=== PATIENT | male | born 1995 | race Caucasian/White ===

== ENCOUNTER 2021-05-30 22:12 | Emergency (ER) | payer BC, SELFPAY ==
[2021-05-30 22:30] VITALS: BP 185/85; PULSE 100; RESP 16; TEMP 37.7; O2SAT 100
[2021-05-30 23:37] LABS: Rapid Strep A Test Negative (Negative)
[2021-05-30 23:49] LABS: Influenza A by IFA Negative (Negative); Influenza B by IFA Negative (Negative); SARS Covid-2 Antigen Negative (Negative)
--- NOTE | 2021-05-31 00:23 | W.ED.COVID ---
HPI - COVID General: Chief Complaint: COVID symptoms Stated Complaint: Chills\shaking\sore Throat Time Seen by Provider: 05/30/21 23:57 Triage information: Has fever, cough or shortness of breath. No known COVID + exposure last 14 days History of Present Illness: HPI Narrative: Patient complains about sore throat today. Has had some chills mild fever here triage. Denies any other problems. MD complaint: other Prior covid testing: no COVID 19 common symptoms: positive fever(s), chills and throat pain; negative non-productive cough, productive cough, dyspnea, headache(s), nausea or vomiting COVID 19 other sytmptoms: negative chest pain Onset (ago): hour(s) Severity: mild Treatment prior to arrival: none COVID Results: SARS-CoV-2 Antigen (Rapid) Negative (Negative) 05/30/21 23:00 05/30/21 Review of Systems Const: Reports: fever(s) and chills Eyes: Denies: change in vision or blurry vision ENMT: Reports: throat pain Card: Denies: chest pain or dyspnea on exertion Resp: Denies: dyspnea, productive cough or non-productive cough GI: Denies: abdominal pain, nausea or vomiting : Denies: difficulty urinating Musc: Denies: extremity pain Skin/Breast: Denies: rash Neuro: Denies: headache(s) Psych: Denies: anxiety or depression Grant/Lymph: Denies: easy bruising Physical Exam Const: COMMON NORMALS: no acute distress, average body habitus and patient oriented x3 HENMT: COMMON NORMALS: normocephalic and Normal external nose present HEAD & SCALP: normal to inspection and normocephalic FACE & SINUS: normal facial exam NOSE: Normal external nose present MOUTH: Normal oral and palatal mucosa present THROAT: posterior oropharynx abnormal erythema Eye: COMMON NORMALS: conjunctivae normal GENERAL EYE: appearance normal, both eyes and all related structures CONJUNCTIVA: Yes conjunctivae normal Neck/C-Spine: COMMON NORMALS: no JVD Chest: COMMONS NORMALS: normal inspection of the chest Resp: COMMON NORMALS: normal respiratory effort and clear to auscultation bilaterally AUSCULTATION: clear to auscultation bilaterally Cardio: COMMON NORMALS: no JVD, regular rate and regular rhythm RATE: regular rate RHYTHM: regular rhythm GI: COMMON NORMALS: Normal to inspection, nondistended, normoactive bowel sounds present Extremity: COMMON NORMALS: normal to inspection and full ROM Neuro: COMMON NORMALS: patient oriented x3 Course Vital Signs: Vital signs: Vital Signs Temperature 100 F H 05/30/21 22:30 Pulse Rate 100 05/30/21 22:30 Respiratory Rate 16 05/30/21 22:30 Blood Pressure 185/85 05/30/21 22:30 Pulse Oximetry 100 05/30/21 22:30 MDM - COVID Lab Data: Labs: Lab Results 05/30/21 05/30/21 05/30/21 23:00 23:00 23:00 Influenza Type A A g Negative (Negative) Influenza Type B A g Negative (Negative) SARS-CoV-2 Ag (Rap id) Negative (Negative) Group A Strep Rapi d Negative (Negative) COVID Results: SARS-CoV-2 Antigen (Rapid) Negative (Negative) 05/30/21 23:00 05/30/21 Discharge Plan Discharge Patient Disposition: Home Clinical Impression: Pharyngitis Qualifiers: Pharyngitis/tonsillitis etiology: unspecified etiology Qualified Code(s): J02.9 - Acute pharyngitis, unspecified Condition: Stable Prescriptions: New cephalexin 500 mg capsule 500 mg PO Q8H 7 Days Qty: 21 RF: 0 Discharge Orders: Discharge ED (Routine); Ordered 05/31/21 Ordered By: Akira Mcgowan Discharge Diet: Usual diet Discharge Activity: Increase activity as tolerated Patient Instructions: Pharyngitis (ED) Activity Restrictions/Additional Instructions: Follow-up with medical provider as directed. Take medications as prescribed. Return to the ER or your medical provider if condition worsens. Please read and understand discharge instructions. If any questions ask please. 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
[2021-05-31 00:33] VITALS: O2SAT 100
[2021-05-31 00:34] VITALS: BP 140/80; PULSE 83; RESP 18; O2SAT 100
[2021-05-31] MEDS: cephALEXin 500 mg Capsule PO (01:02)
[2021-05-31] MEDS: acetaminophen 500 mg Tablet 1000 MG PO (01:02)
[2021-05-31 01:04] VITALS: BP 135/63; PULSE 99; RESP 18; O2SAT 95
== END 2021-05-31 01:06 | disposition home or self-care (01) ==
PROVIDERS: Emergency Medicine; Emergency Provider Nurse Practitioner Family
DX: J02.9 Acute pharyngitis, unspecified (principal)
CPT/HCPCS: 87081; 87426; 87804; 87880; 99283

== ENCOUNTER 2023-01-20 20:29 | Emergency (ER) | payer BC, SELFPAY ==
[2023-01-20 20:44] VITALS: BP 139/85; PULSE 96; RESP 18; TEMP 37.8; O2SAT 100; BMI 39.4
[2023-01-20 21:35] VITALS: BP 166/100; RESP 16; TEMP 38.4; O2SAT 100
--- NOTE | 2023-01-20 22:12 | ED_ITS ---
HPI - Headache General: Chief Complaint: Headache Stated Complaint: sore throat Time Seen by Provider: 01/20/23 21:33 History of Present Illness: 28yo male here with a sore throat and headache. Patient reports his throat started hurting him 2 days ago. States that it feels like he may have a crick in his neck due to the pain in his throat. Reports that he is now having a headache to the front of his head. Patient states that he did not have a fever at home, but he does have 1 here now. He reports that he does have increased pain with swallowing. He reports a family member had strep, but he has not been around them in about a week. He denies any cough, congestion, difficulty breathing, shortness of breath, chest pain, abdominal pain, vomiting, diarrhea. Associated symptoms: Reports fever(s); Deny chest pain, nausea or vomiting Review of Systems Const: Reports: fever(s); Denies: chills or body aches ENMT: Reports: throat pain Card: Denies: chest pain Resp: Denies: dyspnea GI: Denies: abdominal pain, nausea or vomiting Musc: Denies: neck pain Neuro: Reports: headache(s) Physical Exam Const: COMMON NORMALS: no acute distress, patient oriented x3, healthy appearing and alert GENERAL APPEARANCE: cooperative ORIENTATION/CONSCIOUSN ESS: Yes awake OTHER: Patient is ambulatory to the exam room unassisted. He is sitting upright on the stretcher in no acute distress. He is able to give history with no difficulty. No family is at bedside HENMT: COMMON NORMALS: normocephalic, atraumatic, external ears normal, EAC's normal, TM's normal bilaterally and Normal external nose present HEAD & SCALP: normocephalic and atraumatic FACE & SINUS: normal facial exam NOSE: Normal external nose present EXTERNAL EAR: Yes external ears normal EXTERNAL AUDITORY CANAL: EAC's normal TYMPANIC MEMBRANE: TM's normal bilaterally MOUTH: Normal oral and palatal mucosa present THROAT: posterior oropharynx abnormal cobblestoning and erythema; no exudates and tonsils absent Eye: GENERAL EYE: appearance normal, both eyes and all related structures Neck/C-Spine: COMMON NORMALS: full ROM Chest: CHEST: Yes Symmetrical chest wall rise Resp: COMMON NORMALS: normal respiratory effort EFFORT & INSPECTION: Yes able to speak in complete sentences Cardio: COMMON NORMALS: regular rate and regular rhythm RATE: regular rate RHYTHM: regular rhythm Extremity: COMMON NORMALS: full ROM Neuro: COMMON NORMALS: patient oriented x3 and moves all extremities SENSORIUM/ORIENTATION: Yes alert Psych: COMMON NORMALS: mental status grossly normal and cooperative Course Vital Signs: Vital signs: Vital Signs Temperature 100.6 F H 01/20/23 22:56 Pulse Rate 68 01/20/23 23:30 Respiratory Rate 18 01/20/23 23:30 Blood Pressure 132/67 01/20/23 23:30 Pulse Oximetry 100 01/20/23 23:30 Oxygen Delivery Me thod Room Air 01/20/23 22:24 MDM - Headache Medical Decision Making 28yo male here with a sore throat that has been ongoing for the past 2 days and headache that started today. Patient also developed a fever today. States that he was around someone with strep throat, but it has been greater than a week. He denies any cough, congestion, difficulty breathing, shortness of breath, chest pain, abdominal pain, vomiting, diarrhea. Patient is nontoxic in appearance. Vital signs are stable. Patient was noted to have a temperature of 101.1 in triage, Tylenol ordered. Differentials include strep pharyngitis, viral infection, tonsillitis Rapid strep is negative, culture is pending. Discussed findings with patient. Advised this is likely a viral infection and is typically self-limiting. Encourage patient to continue with Tylenol and/ibuprofen as needed for fever and comfort. Discussed increase fluid intake as well as salt water gargles. Recommend follow-up with primary care, call later this week with an update of symptoms and to discuss recheck. Advised return to the emergency department if any rapid worsening symptoms and as needed Lab Data I reviewed the patient's lab results. Laboratory Results Group A Strep Rapid Negative (Negative) 01/20/23 22:23 Discharge Plan Discharge Patient Disposition: Home Clinical Impression: Nonspecific syndrome suggestive of viral illness Condition: Stable Prescriptions: No Action fluticasone propionate [Flonase Allergy Relief] 50 mcg/actuation spray,suspension 2 spray intranasal DAILY Qty: 16 0RF Rx Instructions: administer into each nostril cetirizine [Zyrtec] 10 mg tablet 10 mg PO DAILY Qty: 30 0RF Discharge Orders: Discharge ED (Routine); Ordered 01/20/23 Ordered By: Jose Alberto Edi Discharge Diet: Usual diet Discharge Activity: Resume usual activity Patient Instructions: Viral Syndrome (ED) Activity Restrictions/Additional Instructions: Rapid strep is negative, the culture is pending. If positive, we will notify you Increase your fluid intake and continue to monitor your symptoms. 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
[2023-01-20] MEDS: acetaminophen 500 mg Tablet 1000 MG PO (22:21)
[2023-01-20 22:24] VITALS: BP 147/80; PULSE 116; O2SAT 100
[2023-01-20 22:42] LABS: Rapid Strep A Test Negative (Negative)
[2023-01-20 22:56] VITALS: TEMP 38.1
[2023-01-20 23:30] VITALS: BP 132/67; PULSE 68; RESP 18; O2SAT 100
--- NOTE | 2023-01-23 11:32 | DCPLANNER ---
system development manager called patient due to no primary care physician - patient declines at this time, he is going to try and get in with the provider that his father sees.
== END 2023-01-20 23:31 | disposition home or self-care (01) ==
PROVIDERS: Nurse Practitioner; Emergency Provider Family Medicine
DX: J02.9 Acute pharyngitis, unspecified (principal); R51.9 Headache, unspecified; R50.9 Fever, unspecified
CPT/HCPCS: 12345; 87081; 87880; 99283

== ENCOUNTER → 2023-02-02 10:15 | Outpatient (BNVA) | payer BC, SELFPAY | PROVIDERS: Visit Provider Family Medicine | DX: R50.9 Fever, unspecified (principal); J02.9 Acute pharyngitis, unspecified | CPT/HCPCS: 87071; 87426; 87880 ==

== ENCOUNTER 2023-04-18 05:44 | Emergency (ER) | payer BC, SELFPAY ==
[2023-04-18 05:48] VITALS: BP 123/70; PULSE 77; RESP 18; TEMP 36.8; O2SAT 100; BMI 39.1
[2023-04-18 06:10] LABS: Basophils % 0.2 %; Eosinophils # 0.1 10^3/uL (0.0-0.8); Eosinophils % 1.1 %; Hematocrit 43.6 % (37-53); Lymphocytes # 0.8 10^3/uL (0.8-4.8); Lymphocytes % 7.7 %; Mean Corpuscular HGB Conc 32.3 g/dL (30-55); Mean Corpuscular Hemoglobin 31.5 pg (27-33); Mean Corpuscular Volume 97.3 fl (82-101); Monocytes # 0.4 10^3/uL (0.2-0.9); Monocytes % 3.9 %; Neutrophils # 8.83 10^3/uL (1.8-7.7); Neutrophils % 86.8 %; Nucleated Red Blood Cells % 0 %; Platelet Count 157 10^3/cmm (157-399); Red Blood Count 4.48 10^6/uL (3.85-5.65); Red Cell Distribution Width 13.3 % (12.1-15.1); White Blood Count 10.17 10^3/uL (3.29-11.43)
[2023-04-18] MEDS: sodium chloride 0.9% 1,000 ML 999 ML IV (06:13)
--- NOTE | 2023-04-18 06:21 | W.ED.NAVMDI ---
HPI - Nausea/Vomiting/Diarrhea General: Chief complaint: Nausea/Vomiting/Diarrhea Stated complaint: Stomach Pain Time Seen by Provider: 04/18/23 05:58 Source: patient Mode of arrival: ambulatory History of Present Illness: 28-year-old male presents emergency room complaining of nausea vomiting and diarrhea. Began overnight yesterday he ate a couple of times in the evening began to feel sick he had a low-grade fever no dysuria urgency or frequency denies hematemesis coffee-ground emesis. No abdominal pain at this time no chest pain no shortness of breath no other symptoms. Said 1 episode of vomiting and 3 diarrhea stools MD elicited complaint: nausea, vomiting and diarrhea Onset (ago): hour(s) Description of vomiting: food contents and watery Associated nausea: Yes Associated abdominal pain: No Exacerbating factors: none Relieving factors: none Associated symtoms: Reports nausea; Denies altered mental status, anxiety, bloating, change in vision, chest pain, cough, diaphoresis, decreased urine output, dizziness, dysuria, epistaxis, fatigue, fecal incontinence, fevers/chills, headache(s), anorexia, malaise, myalgias, numbness, palpitations, rash, short of breath, syncope, tenesmus, tinnitus or weakness Review of Systems Const: Denies: fever(s), chills, fatigue, malaise or diaphoresis Eyes: Denies: change in vision ENMT: Denies: tinnitus or epistaxis Card: Denies: chest pain, palpitations or syncope Resp: Denies: dyspnea GI: Reports: nausea, vomiting and diarrhea; Denies: abdominal pain, bloating or fecal incontinence : Denies: dysuria Musc: Denies: neck pain or back pain Skin/Breast: Denies: rash Neuro: Denies: headache(s) or dizziness Psych: Denies: anxiety Physical Exam Const: COMMON NORMALS: no acute distress EXAM LIMITATIONS: no altered mental status GENERAL APPEARANCE: cooperative and comfortable ORIENTATION/CONSCIOUSNESS: Yes awake, Yes oriented to person, Yes oriented to place and Yes oriented to time HENMT: COMMON NORMALS: normocephalic, atraumatic and hearing grossly normal bilaterally HEAD & SCALP: normocephalic and atraumatic Resp: COMMON NORMALS: normal respiratory effort, No retractions, No use of accessory muscles and clear to auscultation bilaterally AUSCULTATION: clear to auscultation bilaterally Cardio: COMMON NORMALS: regular rate, regular rhythm and No murmurs present (Cardio) RATE: regular rate RHYTHM: regular rhythm GI: COMMON NORMALS: Soft to palpation and No hepatosplenomegaly present AUSCULTATION: Yes normoactive bowel sounds PALPATION: Yes Soft to palpation, No Tenderness to palpation present (GI), No Guarding due to palpation present (GI) and Yes No hepatosplenomegaly present Extremity: COMMON NORMALS: normal to inspection, capillary refill normal, no clubbing, cyanosis or edema, no calf tenderness and no pedal edema Neuro: SENSORIUM/ORIENTATION: Yes oriented to person, Yes oriented to place and Yes oriented to time Skin: COMMON NORMALS: no rashes or lesions noted GENERAL SKIN EXAM: no rashes or lesions noted Course Vital Signs: Vital signs: Vital Signs Temperature 98.3 F 04/18/23 05:48 Pulse Rate 77 04/18/23 05:48 Respiratory Rate 18 04/18/23 07:21 Blood Pressure 123/70 04/18/23 05:48 Pulse Oximetry 96 04/18/23 07:21 Oxygen Delivery Me thod Room Air 04/18/23 07:21 MDM - Nausea/Vomiting/Diarrhea Medical Decision Making Labs abdominal reviewed, exam benign with. no leukocytosis. Discharge home clear liquid diet and advance as tolerated antiemetics as needed. Medical Records I reviewed the patient's medical records. Lab Data I reviewed the patient's lab results. 04/18/23 06:05 04/18/23 07:00 Laboratory Results WBC 10.17 10^3/uL (3.29-11.43) 04/18/23 06:05 RBC 4.48 10^6/uL (3.85-5.65) 04/18/23 06:05 Hgb 14.10 g/dL (11.27-16.99) 04/18/23 06:05 Hct 43.6 % (37-53) 04/18/23 06:05 MCV 97.3 fl (82-101) 04/18/23 06:05 MCH 31.5 pg (27-33) 04/18/23 06:05 MCHC 32.3 g/dL (30-55) 04/18/23 06:05 RDW 13.3 % (12.1-15.1) 04/18/23 06:05 Plt Count 157 10^3/cmm (157-399) 04/18/23 06:05 MPV 11.0 fL (7.4-10.4) H 04/18/23 06:05 Neut % (Auto) 86.8 % 04/18/23 06:05 Lymph % (Auto) 7.7 % 04/18/23 06:05 Butts % (Auto) 3.9 % 04/18/23 06:05 Eos % (Auto) 1.1 % 04/18/23 06:05 Baso % (Auto) 0.2 % 04/18/23 06:05 Neut # (Auto) 8.83 10^3/uL (1.8-7.7) H 04/18/23 06:05 Lymph # (Auto) 0.8 10^3/uL (0.8-4.8) 04/18/23 06:05 Butts # (Auto) 0.4 10^3/uL (0.2-0.9) 04/18/23 06:05 Eos # (Auto) 0.1 10^3/uL (0.0-0.8) 04/18/23 06:05 Baso # (Auto) 0.0 10^3/uL (0.0-0.1) 04/18/23 06:05 Nucleated RBC % (auto) 0 % 04/18/23 06:05 Nucleated RBCs # 0.0 /100WBC 04/18/23 06:05 Sodium 136 mmol/L (136-145) 04/18/23 07:00 Potassium 3.7 mmol/L (3.5-5.1) 04/18/23 07:00 Chloride 98 mmol/L (98-107) 04/18/23 07:00 Carbon Dioxide 27 mmol/L (22-29) 04/18/23 07:00 Anion Gap 14.7 (5-19) 04/18/23 07:00 BUN 12 mg/dL (6-20) 04/18/23 07:00 Creatinine 0.9 mg/dL (0.7-1.2) 04/18/23 07:00 GFR Calculation 102.0 mL/min (90-130) 04/18/23 07:00 Glucose 109 mg/dL (65-115) 04/18/23 07:00 Calculated Osmolality 282 mOsm/kg (285-295) L 04/18/23 07:00 Calcium 8.2 mg/dL (8.5-10.5) L 04/18/23 07:00 Total Bilirubin 0.9 mg/dL (0.15-1.2) 04/18/23 07:00 AST 20 U/L (0-40) 04/18/23 07:00 ALT 27 U/L (0-41) 04/18/23 07:00 Alkaline Phosphatase 81 U/L (40-130) 04/18/23 07:00 C-Reactive Protein 24.4 mg/L (0.0-4.9) H 04/18/23 07:00 Total Protein 7.1 g/dL (6.6-8.7) 04/18/23 07:00 Albumin 4.0 g/dL (3.5-5.2) 04/18/23 07:00 Globulin 3.1 g/dL (1.3-4.6) 04/18/23 07:00 Lipase 17 U/L (13-60) 04/18/23 07:00 Urine Color Yellow (Yellow) 04/18/23 07:20 Urine Appearance Sl hazy (CLEAR) A 04/18/23 07:20 Urine pH 9 (5-7) H 04/18/23 07:20 Ur Specific [place] 1.015 (1.005-1.030) 04/18/23 07:20 Urine Protein Neg (Negative) 04/18/23 07:20 Urine Glucose (UA) Norm (Normal) 04/18/23 07:20 Urine Ketones Negative (Negative) 04/18/23 07:20 Urine Blood Neg (Negative) 04/18/23 07:20 Urine Nitrate Negative (Negative) 04/18/23 07:20 Urine Bilirubin Neg (Negative) 04/18/23 07:20 Prot Sulfosalicylic Acd Negative (Negative) 04/18/23 07:20 Urine Urobilinogen Norm mg/dL (Negative) 04/18/23 07:20 Ur Leukocyte Esterase Negative (Negative) 04/18/23 07:20 Urine RBC None /hpf (0-2) 04/18/23 07:20 Urine WBC None /hpf (0-5) 04/18/23 07:20 Ur Squamous Epith Cells 0-4 /hpf (0-5) H 04/18/23 07:20 Amorphous Sediment Trace /hpf 04/18/23 07:20 Urine Bacteria Trace /hpf (NONE) 04/18/23 07:20 Urine Mucus 1+ /hpf 04/18/23 07:20 No radiology studies performed this visit Discharge Plan Discharge Patient Disposition: Home Clinical Impression: Gastroenteritis Condition: Stable Prescriptions: New ondansetron HCl 4 mg tablet 4 mg PO Q6H PRN (Reason: nausea and vomiting) Qty: 20 0RF No Action azithromycin [Zithromax Z-Kirt] 250 mg tablet See Rx Instructions PO .COMPLEX Qty: 6 0RF Rx Instructions: take 500 mg today (day 1), then 250 mg for 4 days (days 2-5) PO Discharge Orders: Discharge ED (Routine); Ordered 04/18/23 Ordered By: Rajat Chiang Referrals: Deb Dominguez MD [Primary Care Provider] - Discharge Diet: Clear Liquid Discharge Activity: Increase activity as tolerated Patient Instructions: Opioid Safety, Pain Management Activity Restrictions/Additional Instructions: Thank you for choosing [facility] for your healthcare needs today. Please realize this is an emergency room and that we are providing you with a medical screening exam and this may not be complete and all inclusive of all the testing and or work up that you may need to determine your ailment or severity of your illness. It is very important that you follow up as instructed or that you return to the Emergency Department should you have concerns or if your condition changes or worsens in any way. Your laboratory tests were unremarkable. Recommend clear liquid diet for 24 to 48 hours using ondansetron as needed for nausea. 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
[2023-04-18 07:21] VITALS: RESP 18; O2SAT 96
[2023-04-18 07:37] LABS: Alanine Aminotransferase 27 U/L (0-41); Alkaline Phosphatase 81 U/L (40-130); Anion Gap 14.7 (5-19); Aspartate Amino Transferase 20 U/L (0-40); Blood Urea Nitrogen 12 mg/dL (6-20); C Reactive Protein 24.4 mg/L (0.0-4.9); Calcium 8.2 mg/dL (8.5-10.5); Carbon Dioxide 27 mmol/L (22-29); Chloride 98 mmol/L (98-107); Globulin 3.1 g/dL (1.3-4.6); Glucose 109 mg/dL (65-115); Lipase 17 U/L (13-60); Osmolality Calculated 282 mOsm/kg (285-295); Potassium 3.7 mmol/L (3.5-5.1); Sodium 136 mmol/L (136-145); Total Bilirubin 0.9 mg/dL (0.15-1.2); Total Protein 7.1 g/dL (6.6-8.7)
[2023-04-18 07:57] LABS: Add Urine Microscopic? YES; Amorphous Sediment Urine TRACE /hpf; Bacteria Urine TRACE /hpf; Bilirubin Urine Neg (Negative); Blood Urine Neg (Negative); Glucose Urine UA Norm (Normal); Ketones Urine Negative (Negative); Leukocyte Esterase Urine Negative (Negative); Mucus Urine 1+ /hpf; Nitrate Urine Negative (Negative); Protein Urine Neg (Negative); Specific Gravity, Urine 1.015 (1.005-1.030); Squamous Epithelial Cell Urine 0-4 /hpf (0-5); Sulfosalicylic Acid Urine Negative (Negative); Urine Appearance SL Hazy (CLEAR); Urine Color Yellow (Yellow); Urobilinogen Urine Norm (Negative); pH Urine 9 (5-7)
[2023-04-18 07:58] LABS: Add Urine Culture? No
== END 2023-04-18 08:43 | disposition home or self-care (01) ==
PROVIDERS: Emergency Medicine; Emergency Provider Family Medicine; PCP Family Medicine
DX: K52.9 Noninfective gastroenteritis and colitis, unspecified (principal)
CPT/HCPCS: 36415; 80053; 81001; 83690; 85025; 86140; 99284; J7030

== ENCOUNTER 2024-07-01 08:09 | Emergency (ER) | payer OTHER, SELFPAY ==
[2024-07-01 08:31] VITALS: BP 160/90; PULSE 74; RESP 18; TEMP 37; O2SAT 97; BMI 39.1
--- NOTE | 2024-07-01 08:59 | W.ED.BACK ---
HPI - Back Pain/Injury General: Chief Complaint: Back Pain/Injury Stated Complaint: low back pain Time Seen by Provider: 07/01/24 08:58 Source: patient Mode of arrival: ambulatory Limitations: no limitations History of Present Illness: Patient is a 29-year-old male comes to ED today with complaint of lower back pain. Patient states pain started yesterday while at work while lifting something that weighed approximately 40 pounds. He states he immediately felt something pull in his lower back. Later that night he felt a pop when he bent over. He states pain stays in his midline lower back. He has no radiation into his buttocks or lower extremity. He has no saddle anesthesia or bowel or bladder dysfunction. He is ambulatory here without assistance although states this is uncomfortable. MD elicited complaint: back pain Onset (ago): day(s) (yesterday) Timing: constant Severity: moderate Pain scale (0-10): 6 Location: lumbar spine Radiation: none Exacerbating factors: movement, walking and lifting Relieving factors: none Context: while lifting Associated symptoms: Deny abdominal pain, dysuria, fever(s) or hematuria Work related injury: Yes Related Data Previous Rx's Medication Instructions Recorded ibuprofen 200 mg tablet (Advil) 800 mg (4 x 200 mg) PO Q8H PRN 07/01/24 Pain #60 tabs methylprednisolone 4 mg tablets in See Rx Instructions PO .COMPLEX 07/01/24 a dose pack (Medrol (Kirt)) #21 ea Allergies Allergy/AdvReac Type Severity Reaction Status Date / Time No Known Allergies Allergy Verified 08/04/23 13:30 Review of Systems Const: Denies: fever(s) Card: Denies: chest pain Resp: Denies: dyspnea GI: Denies: abdominal pain : Denies: flank pain, dysuria or hematuria Musc: Reports: back pain; Denies: neck pain, extremity pain, extremity swelling, joint pain or joint swelling Skin/Breast: Denies: rash Neuro: Denies: numbness in extremities, weakness in extremities or sensory changes Physical Exam Const: COMMON NORMALS: no acute distress, patient oriented x3, no limitations, alert and well nourished GENERAL APPEARANCE: cooperative NUTRITIONAL APPEARANCE: obese ORIENTATION/CONSCIOUSNESS: Yes awake, Yes oriented to person, Yes oriented to place and Yes oriented to time Resp: COMMON NORMALS: normal respiratory effort and clear to auscultation bilaterally AUSCULTATION: clear to auscultation bilaterally Cardio: COMMON NORMALS: regular rate and regular rhythm RATE: regular rate RHYTHM: regular rhythm GI: COMMON NORMALS: Normal to inspection, nondistended, normoactive bowel sounds present, Soft to palpation, non-tender and no masses PALPATION: Yes Soft to palpation : COMMON NORMALS: Yes no CVA tenderness BLADDER/KIDNEY EXAM: Yes no CVA tenderness Back/Pelvis: COMMON NORMALS: no CVA tenderness and thoracic and lumbar spine normal to inspection THORACIC SPINE/UPPER BACK: Yes normal to inspection, Yes thoracic ROM normal, No thoracic spinal tenderness and No paraspinal muscle tenderness LUMBAR SPINE/LOWER BACK: Yes pain with ROM, Yes lumbar spinal tenderness, No paraspinal muscle spasm and No mass present PELVIS: Yes buttocks normal and No sciatic notch tenderness SACROILIAC JOINTS: Yes SI joints normal SACRUM: no tenderness COCCYX: no tenderness Extremity: COMMON NORMALS: no clubbing, cyanosis or edema, no calf tenderness and no pedal edema GENERAL: Yes normal exam except as noted Neuro: COMMON NORMALS: patient oriented x3, moves all extremities, no focal motor deficits and no sensory deficits noted SENSORIUM/ORIENTATION: Yes alert, Yes oriented to person, Yes oriented to place and Yes oriented to time MOTOR EXAM: 5/5 motor strength present throughout Course Vital Signs: Vital signs: Vital Signs Temperature 98.6 F 07/01/24 08:31 Pulse Rate 74 07/01/24 08:31 Respiratory Rate 18 07/01/24 08:31 Blood Pressure 160/90 07/01/24 08:31 Pulse Oximetry 97 07/01/24 08:31 Oxygen Delivery Me thod Room Air 07/01/24 08:31 MDM - Back Pain/Injury Medical Decision Making No acute neurologic compromise. There is lumbar XRs are unremarkable. Patient will be treated with anti-inflammatories and steroids. Recommend follow-up with his HR department for further instructions involving his Worker's Comp. injury. Return to ED precautions discussed. Differential Diagnosis Likely lumbar radiculopathy, sciatica and strain of lumbar region Medical Records I reviewed the patient's medical records. Labs Radiology Impressions Lumbar Spine X-Ray 07/01/24 09:05 IMPRESSION: No significant abnormality. All radiology interpretation(s) finalized by discharge Discharge Plan Discharge Patient Disposition: Home Clinical Impression: Low back strain Qualifiers: Encounter type: initial encounter Qualified Code(s): S39.012A - Strain of muscle, fascia and tendon of lower back, initial encounter Condition: Stable Prescriptions: New methylprednisolone [Medrol (Kirt)] 4 mg tablets,dose pack See Rx Instructions .ROUTE .COMPLEX Qty: 21 0RF Rx Instructions: orally per package directions Changed ibuprofen [Advil] 200 mg Tablet 800 mg PO Q8H PRN (Reason: Pain) Qty: 60 0RF Discharge Orders: Discharge ED (Routine); Ordered 07/01/24 Ordered By: Alyson Yip Referrals: Mago Rodriguez FNP [Primary Care Provider] - Patient Instructions: Low Back Strain (ED) Activity Restrictions/Additional Instructions: As we discussed, please reach out to your HR department for further instructions involving your Worker's Comp. injury. You may take 800 mg of ibuprofen every 8 hours as needed for discomfort. Will place you on steroids. You have been provided prescriptions for these medications. 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
--- NOTE | 2024-07-01 09:05 | XR_ITS ---
WS: [id number] XR lumbar spine 2-3V* [id number] REASON FOR EXAM: injury FINDINGS: Normal lumbar spine curvatures. Normal vertebral bodies. Normal intervertebral disc spaces. No spondylolysis or spondylolisthesis. XR/XR lumbar spine 2-3V* [id number] IMPRESSION: No significant abnormality.
[2024-07-01] MEDS: orphenadrine 30 mg/mL Inj 2 mL 60 MG IM (09:41)
[2024-07-01] MEDS: dexamethasone 10 mg/mL INJ IM (09:41)
[2024-07-01] MEDS: ketorolac 60 mg/2 mL INJ IM (09:44)
[2024-07-01 10:22] VITALS: BP 148/92; PULSE 72; O2SAT 99
== END 2024-07-01 10:23 | disposition home or self-care (01) ==
PROVIDERS: Emergency Provider Physician Assistant; PCP Nurse Practitioner Family
DX: S39.012A Strain of muscle, fascia and tendon of lower back, initial encounter (principal); X50.0XXA Overexertion from strenuous movement or load, initial encounter
CPT/HCPCS: 72100; 96372; 99284; J1100; J1885; J2360

== ENCOUNTER 2024-09-04 20:19 | Emergency (ER) | payer MEDICAID, SELFPAY ==
[2024-09-04 20:23] VITALS: BP 154/78; PULSE 103; RESP 20; TEMP 38.2; O2SAT 98; BMI 40.1
[2024-09-04 21:46] LABS: Influenza A NEGATIVE (Negative); Influenza B NEGATIVE (Negative); Respiratory Syncytial Virus Ce NEGATIVE (Negative)
[2024-09-04] MEDS: naproxen 500 mg Tablet PO (21:50)
[2024-09-04] MEDS: acetaminophen 325 mg Tablet 650 MG PO (21:50)
[2024-09-04 22:00] LABS: SARS-CoV-2 PCR Positive (Negative)
--- NOTE | 2024-09-04 22:05 | W.ED.URI ---
HPI - URI/Sore Throat General: Chief Complaint: Upper Respiratory Infection Stated Complaint: Sinus Problems Time Seen by Provider: 09/04/24 21:16 History of Present Illness: 29-year-old male with a history of environmental allergies and obesity who presents emergency department with 24 hours of symptoms including headache, body aches, slightly decreased appetite, fever, runny nose and congestion. Denies any cough, shortness of breath, abdominal pain, nausea, vomiting, diarrhea, rashes or wounds. Most of his family have been sick over the last week and a half. He was the last to get ill. Related Data Previous Rx's ?Medication ?Instructions ?Recorded ibuprofen 200 mg tablet (Advil) 800 mg (4 x 200 mg) PO Q8H PRN 07/01/24 Pain #60 tabs methylprednisolone 4 mg tablets in See Rx Instructions PO .COMPLEX 07/01/24 a dose pack (Medrol (Kirt)) #21 ea loratadine 5 mg-pseudoephedrine ER 1 tab PO BID PRN nasal congestion 09/04/24 120 mg tablet,extended 5 days #10 tabs release,12hr (Claritin-D 12 Hour) Allergies Allergy/AdvReac Type Severity Reaction Status Date / Time No Known Allergies Allergy Verified 08/04/23 13:30 Review of Systems General: Reports: 10 or more systems reviewed and unremarkable except in HPI and below Physical Exam Const: COMMON NORMALS: no limitations, alert and well nourished EXAM LIMITATIONS: no altered mental status HENMT: COMMON NORMALS: normocephalic, atraumatic and external ears normal HEAD & SCALP: normocephalic and atraumatic FACE & SINUS: normal facial exam and other (rhinorrhea and congestion); no crepitus, no ecchymosis, no erythema and no edema EXTERNAL EAR: Yes external ears normal MOUTH: Normal oral and palatal mucosa present, lip normal and tongue normal; no muffled voice Eye: COMMON NORMALS: EOMs intact bilaterally, conjunctivae normal and no scleral icterus CONJUNCTIVA: Yes conjunctivae normal Neck/C-Spine: COMMON NORMALS: no JVD GENERAL: Yes normal visual inspection and Yes trachea midline Resp: COMMON NORMALS: normal respiratory effort, No use of accessory muscles and clear to auscultation bilaterally AUSCULTATION: clear to auscultation bilaterally Cardio: COMMON NORMALS: no JVD and regular rhythm RATE: tachycardic RHYTHM: regular rhythm GI: COMMON NORMALS: Soft to palpation and non-tender PALPATION: Yes Soft to palpation and No Guarding due to palpation present (GI) Extremity: COMMON NORMALS: normal to inspection Neuro: COMMON NORMALS: moves all extremities, no focal motor deficits and no sensory deficits noted SENSORIUM/ORIENTATION: Yes alert SPEECH: speech normal Psych: COMMON NORMALS: mental status grossly normal, Normal thought process present, cooperative, normal affect and speech normal SPEECH: Yes normal speech THOUGHT PROCESS: Normal thought process present Skin: COMMON NORMALS: no rashes or lesions noted, turgor normal and no jaundice GENERAL SKIN EXAM: no rashes or lesions noted and turgor normal Course Vital Signs: Vital signs: Vital Signs Temperature 100.8 F H 09/04/24 20:23 Pulse Rate 103 H 09/04/24 20:23 Respiratory Rate 20 H 09/04/24 20:23 Blood Pressure 154/78 09/04/24 20:23 Pulse Oximetry 98 09/04/24 20:23 Oxygen Delivery Me thod Room Air 09/04/24 20:23 MDM - URI/Sore Throat Medical Decision Making This is a well-appearing, nontoxic 29-year-old male with nasal congestion, rhinorrhea, mild headache, body aches and fatigue. He has a low-grade fever and mild tachycardia. Rest of his exam is unremarkable. Patient is positive for COVID. Patient reports she has had COVID before. His family has been sick all week so he probably got it from them. No coughing or respiratory distress. Patient also has significant allergies and has been around smoke and animals. He has done well with Claritin-D in the past. He is slightly hypertensive here. I informed him he could use Claritin-D as long as his blood pressure was not elevated at home. At this point he only needs supportive care. Lungs are clear, abdominal exam benign. Lab Data Laboratory Results Influenza A (PCR) Negative (Negative) 09/04/24 20:32 Influenza Type B (PCR) Negative (Negative) 09/04/24 20:32 RSV (PCR) Negative (Negative) 09/04/24 20:32 SARS-CoV-2 (PCR) Positive (Negative) A 09/04/24 20:32 No radiology studies performed this visit Discharge Plan Discharge Patient Disposition: Home Clinical Impression: COVID-19 Condition: Stable Prescriptions: New Claritin-D 12 Hour 5-120 mg tablet extended release 12 hr 1 tab PO BID PRN (Reason: nasal congestion) 5 Days Qty: 10 0RF No Action methylprednisolone [Medrol (Kirt)] 4 mg tablets,dose pack See Rx Instructions .ROUTE .COMPLEX Qty: 21 0RF Rx Instructions: orally per package directions ibuprofen [Advil] 200 mg Tablet 800 mg PO Q8H PRN (Reason: Pain) Qty: 60 0RF Discharge Orders: Discharge ED (Routine); Ordered 09/04/24 Ordered By: Nikhil Hooper Discharge Diet: Advance as tolerated Discharge Activity: Increase activity as tolerated Patient Instructions: COVID-19 (Coronavirus Disease 2019) (ED), Pain Management Activity Restrictions/Additional Instructions: You may take Tylenol 500 mg every 6 hours. You may take ibuprofen up to 800 mg every 6 hours. It is advisable to overlap these by 3 hours to get best control of headache, body aches, fever, etc. COVID is a virus. Since you are young and healthy, there is no specific treatment you need. However, I would advise that you make sure you are taking in at least 72 ounces of clear fluids daily. You may use the Claritin-D for nasal congestion and allergy symptoms since you are suffering from both. However, please be advised that if your blood pressure is elevated you should not take Claritin-D. It is slightly elevated in the emergency department. Therefore, you should check it at home before taking this. Return to the emergency department if you have emergent symptoms such as difficulty breathing, swelling, coughing up blood, passing out. Read the handout about COVID 19 disease and management which contains specific information. Print Language: Arabic Coding Level of Care Code ED [employer] Worker for Grey Ortiz
[2024-09-04] MEDS: diphenhydrAMINE 25 mg Capsule PO (22:16)
[2024-09-04] MEDS: oxymetazoline 0.05% Nasal Spray 15 mL 2 SPRAY NOSTRIL-B (22:16)
[2024-09-04 22:24] VITALS: BP 151/83; PULSE 97; O2SAT 99
== END 2024-09-04 22:25 | disposition home or self-care (01) ==
PROVIDERS: Emergency Medicine; Emergency Provider Emergency Medicine
DX: U07.1 COVID-19 (principal); Z11.52 Encounter for screening for COVID-19
CPT/HCPCS: 87637; 99283; J9999